=== PATIENT | female | born 1945 | race Caucasian/White ===

== ENCOUNTER 2016-09-11 09:44 | Day surgery (SDC) | payer MEDICARE ==
[~2016-09-11] VITALS: Ht 154.9 cm; Wt 51.0 kg
[~2016-09-11 09:44] MED LIST: 0.9% Sodium Chloride 1,000 ML IV SCH; ACYC400T2 PO; CALC600T12 PO; CHOL400T3 PO; MULT-1018 PO; Sodium Chloride LOK Flush 10 mL Syringe IV PRN; fentaNYL-PF 50 mCg/mL 2 mL Inj IVPUSH PRN
[2016-09-11 10:43] VITALS: BP 158/98; PULSE 54; O2SAT 100
[2016-09-11 11:41] VITALS: BP 117/90; PULSE 52; RESP 15; O2SAT 100
[2016-09-11 11:49] VITALS: BP 123/74; PULSE 49; RESP 16; O2SAT 98
[2016-09-11 12:00] VITALS: BP 125/72; PULSE 55; RESP 16; O2SAT 100
--- NOTE | 2016-09-11 22:47 | ENDO ---
[address] [address] ENDOSCOPY PROCEDURE PATIENT: YUDELKA GIBBS : 1945 MR#: [id number] ADMIT: 09/11/2016 JOB ID: [id number] DATE OF PROCEDURE: PROCEDURE: Colonoscopy. INDICATION: Screening. Patient's ASA classification is I. Mallampati score is 1. MEDICATIONS: 1. Versed 4 mg. 2. Fentanyl 100 mcg. INSTRUMENT USED: [id number]-H180AL. PREPARATION QUALITY: Good. PROCEDURE DETAILS: After informed consent was obtained, the patient was brought to the GI suite, where she was placed on oxygen via nasal cannula and monitored with continuous pulse oximeter, telemetry, and blood pressure monitoring. A time-out was performed. Then, she was placed in the left lateral decubitus position and medications were administered for sedation. A digital rectal exam was performed which was unremarkable. The colonoscope was then inserted into the rectum and advanced under direct visualization to the cecum, which was identified by the presence of the ileocecal valve and appendiceal orifice. Once the cecum was reached, the colonoscope was then withdrawn back into the rectum as the mucosa and lumen were examined. In the rectum, retroflexion was performed. Following retroflexion, remaining air in the rectum was suctioned and procedure was completed. FINDINGS: Normal exam from rectum to cecum. IMPRESSION: Normal colonoscopy. RECOMMENDATIONS: Repeat colonoscopy in 10 years, sooner if symptoms should dictate. COMPLICATIONS: None. ESTIMATED BLOOD LOSS: Zero.
== END 2016-09-11 23:59 | disposition home or self-care (01) ==
LOC: END 09:44
PROVIDERS: ATTEND Internal Medicine Gastroenterology
DX: Z12.11 Encounter for screening for malignant neoplasm of colon (principal); M81.0 Age-related osteoporosis without current pathological fracture
CPT/HCPCS: G0121; G0500; J2250; J3010; J7030